=== PATIENT | male | born 1965 | race Caucasian/White ===

== ENCOUNTER → 2016-05-26 | Outpatient (CLI) | payer BC ==
[2016-05-26 07:31] LABS: Basophils # (A) 0.1 k/uL (0-0.2); Basophils % (A) 2 %; CH 31.4; Eosinophils # (A) 0.2 k/uL (0-0.7); Eosinophils % (A) 3 %; HCT 47.4 % (39.0-53.0); HDW 2.83; Luc # (Auto) 0.12; Luc % (Auto) 2; Lymphocytes # (A) 2.3 k/uL (1.0-4.8); Lymphocytes % (A) 34 %; MCH 30.5 pg (25.0-35.0); MCHC 33.8 g/dL (31.0-37.0); MCV 90.2 fL (80.0-100.0); Monocytes # (A) 0.5 k/uL (0-1.0); Monocytes % (A) 7 %; Neutrophils # (A) 3.6 k/uL (1.3-7.7); Neutrophils % (A) 53 %; RBC 5.26 m/uL (4.30-5.90); RDW 13.8 % (11.5-15.5); WBC 6.8 k/uL (3.8-10.6); WBC (Perox) 6.91
--- NOTE | 2016-05-26 09:32 | CT ---
EXAMINATION TYPE: CT ChestAbdPelvis w con DATE OF EXAM: 05/26/2016 7:47 AM COMPARISON: 02/23/2016 HISTORY: 51-year-old male with colon cancer TECHNIQUE: Contiguous axial scanning of the chest, abdomen, and pelvis performed with IV Contrast, pa tient injected with 100 ml mL of Omnipaque 300. Delayed images through the kidneys were obtained. Cor onal/sagittal reconstructions performed. CT DLP: 1018.00 mGycm Automated exposure control for dose reduction was used. FINDINGS: CHEST: Heart is normal size without pericardial effusion. Aorta is normal caliber with conventional arch vessel branching anatomy. Right anterior chest wall injection port with catheter tip at the mid SVC. No thoracic lymphadenopathy. Evaluation of the lungs shows no consolidation or pleural effusion. ABDOMEN: There is rectus diastases with laxity of the linea alba and a new right perimedian Chambers hernia jorge ng the epigastrium, axial image 73 and sagittal image 60. This involves a small bowel loop. No obstru ctive or inflammatory changes seen. No focal liver lesion seen. Status post right hepatectomy. No dilated small bowel, free fluid, or free air. Post surgical changes of right hemicolectomy. Oral contrast has progressed to the rectum. Stable 4 mm lower midline mesenteric lymph node axial image 99. Additional scattered mesenteric lymph nodes measure up to 7 mm and are stable from previous. Adrenal glands, kidneys, spleen, and pancreas within normal limits. Pelvis: There are moderate sized left greater than right fat-containing inguinal hernias with resolution of t he previously seen inflammation along the left inguinal canal. No abnormal fluid collection in the pe lvis or pelvic lymphadenopathy seen. Bones: Mild degenerative changes at the hips and throughout the lumbar spine with a levoconvex curvature. No osseous destructive process seen. IMPRESSION: 1. STATUS POST RIGHT HEMICOLECTOMY WITH ENTEROCOLONIC ANASTOMOSIS AND RIGHT HEPATECTOMY. 2. SCATTERED PROMINENT MESENTERIC LYMPH NODES MEASURING UP TO 7 MM ARE UNCHANGED. NO NEW SUSPICIOUS L YMPHADENOPATHY OR MASS. 3. RECTUS DIASTASES WITH A NEW SMALL BOWEL CONTAINING RIGHT PARAMEDIAN CHAMBERS HERNIA ALONG THE EPIGA STRIUM. 4. CONTINUED MODERATE LEFT GREATER THAN RIGHT FAT-CONTAINING INGUINAL HERNIAS. THE PREVIOUSLY SEEN IN FLAMMATION IN THE LEFT INGUINAL CANAL HAS RESOLVED IN THE INTERVAL.
[2016-05-26 12:20] LABS: ALT 36 U/L (21-72); AST 30 U/L (17-59); Alkaline Phosphatase 74 U/L (38-126); Anion Gap 10 mmol/L; Blood Urea Nitrogen 12 mg/dL (9-20); Calcium 9.6 mg/dL (8.4-10.2); Carbon Dioxide 27 mmol/L (22-30); Chloride 105 mmol/L (98-107); Glucose 92 mg/dL (74-99); Non-African American GFR(MDRD) >60 (>60 ml/min/1.73 sqM); Potassium 4.9 mmol/L (3.5-5.1); Sodium 142 mmol/L (137-145); Total Bilirubin 0.8 mg/dL (0.2-1.3); Total Protein 7.5 g/dL (6.3-8.2)
== END | disposition home or self-care (01) ==
LOC: RADCTMAIN 06:51
PROVIDERS: ATTEND Internal Medicine Hematology & Oncology
DX: K40.90 Unilateral inguinal hernia, without obstruction or gangrene, not specified as recurrent (principal); Z90.49 Acquired absence of other specified parts of digestive tract; C18.7 Malignant neoplasm of sigmoid colon
CPT/HCPCS: 80053; 82378; 85025; 71260; 74177; 36415; Q9967

== ENCOUNTER → 2016-11-28 | Outpatient (CLI) | payer BC ==
--- NOTE | 2016-11-28 09:23 | CT ---
EXAMINATION TYPE: CT ChestAbdPelvis w con DATE OF EXAM: 11/28/2016 COMPARISON: 05/26/2016 HISTORY: Colon cancer CT DLP: 1778.60 mGycm CONTRAST: CT scan of the chest, abdomen and pelvis is performed with Oral Contrast and with IV Contrast, patien t injected with 100 ml mL of Omnipaque 300. CT Chest: LUNGS: The lungs are clear and free of infiltrate or atelectasis. No pulmonary nodule or mass is det ected. No pleural effusion or CT evidence of interstitial lung disease. MEDIASTINUM: Thoracic aorta is of normal caliber. The heart is not enlarged. No evidence for media stinal mass or adenopathy. HILAR STRUCTURES: No evidence for mass. No hilar adenopathy is appreciated. OTHER: No significant abnormality. CONTRAST CT ABDOMEN AND PELVIS FINDINGS: LIVER/GB: Stable changes of right hepatectomy. Fatty hepatic infiltration noted. The gallbladder valladares rgically absent. No space occupying hepatic lesion. Biliary tree is of normal caliber. PANCREAS: No inflammation. No distinct mass. SPLEEN: No splenic enlargement. No lesion seen. ADRENALS: No nodule. No thickening. KIDNEYS/BLADDER: No hydronephrosis. No nephrolithiasis. No disctinct renal mass. BOWEL: [place] ventral hernia is again noted with Chambers component. No evidence for incarceration. Fat-containing inguinal hernias also identified. Changes of right hemicolectomy. Normal bowel calib er. No inflammation. GENITAL ORGANS: No gross abnormality. LYMPH NODES: No greater than 1cm abdominal or pelvic lymph nodes are appreciated. AORTA: No significant abnormality. OSSEOUS STRUCTURES: Degenerative changes noted of the lumbar spine. OTHER: No significant additional abnormality is seen. IMPRESSION: 1. Stable appearance of the chest abdomen and pelvis without evidence for metastatic disease. 2. Fatty liver. 3. Changes of partial right hepatectomy and right hemicolectomy. 4. Stable ventral widemouthed hernia.
== END | disposition home or self-care (01) ==
LOC: RADPROMAIN 07:51
PROVIDERS: ATTEND Internal Medicine Hematology & Oncology
DX: C18.7 Malignant neoplasm of sigmoid colon (principal); K76.0 Fatty (change of) liver, not elsewhere classified; K43.9 Ventral hernia without obstruction or gangrene
CPT/HCPCS: 71260; 74177; Q9967

== ENCOUNTER → 2017-12-10 | Outpatient (CLI) | payer BC ==
--- NOTE | 2017-12-10 09:54 | CT ---
EXAMINATION TYPE: CT ChestAbdPelvis w con DATE OF EXAM: 12/10/2017 COMPARISON: 06/18/2017, 11/28/17. HISTORY: Follow up colon CA. CT DLP: 1712 mGycm. Automated Exposure Control for Dose Reduction was Utilized. CONTRAST: CT scan of the thorax, abdomen and pelvis is performed with IV Contrast, patient injected with 100 mL of Isovue 300. FINDINGS: LUNGS: The lungs are grossly clear, there is no concerning parenchymal mass or nodule identified. T here is no pleural effusion or pneumothorax seen. The tracheobronchial tree is patent. MEDIASTINUM: Very minimal coronary artery calcifications are noted. Thoracic aorta is within normal l imits of size. There are no greater than 1 cm hilar or mediastinal lymph nodes. Right-sided Mediport terminates in the superior vena cava. No pericardial effusion is seen. Similar-appearing enlarged e piphrenic lymph node is seen in series 3 image 48. LIVER/GB: Partial right hepatectomy is present as well as diffuse hypoattenuation of the hepatic pare nchyma. This is favored to represent hepatic steatosis and this limits evaluation for underlying hepa tic masses no focal hepatic lesion is seen. PANCREAS: No significant abnormality is seen. No pancreatic ductal dilatation. SPLEEN: No significant abnormality is seen. ADRENALS: Slight thickening of the left adrenal gland is appreciated although similar to the prior wi th no focal measurable lesion. Right adrenal gland is unremarkable. KIDNEYS: Kidneys enhance and excrete symmetrically without hydronephrosis. BOWEL: Although there is no large or small bowel dilatation there is postsurgical change of a right h emicolectomy and similar-appearing ventral hernia with herniation of multiple small bowel loops. No c urrent CT evidence of incarceration as there is no proximal dilatation or distal decompression. No pn eumatosis intestinalis. No subcutaneous inflammatory stranding or mesenteric inflammatory stranding a round the hernia. Circumferential rectal wall thickening is likely due to incomplete distention. Anastomotic site is se en of the rectosigmoid junction. GENITAL ORGANS: No gross abnormality seen. LYMPH NODES: No greater than 1cm abdominal or pelvic lymph nodes are appreciated. OSSEOUS STRUCTURES: There is an old fracture deformity of the xiphoid process spine as well as of the sacroiliac joints and femoral acetabular joints, moderate at the left hip. No new suspicious osseous lesion is identified. OTHER: There are bilateral fat filled inguinal hernias abdominal aorta is of however. IMPRESSION: 1. No new evidence of visceral or osseous metastatic disease within the chest, abdomen, or pelvis. N o new adenopathy. 2. Redemonstration of hepatic steatosis and partial right hepatectomy with no new focal hepatic lesio n identified. 3. Circumferential thickening of the rectal milan likely due to incomplete distention. Again there ar e postsurgical changes of a right hemicolectomy with widening ventral abdominal hernia containing non dilated loops of small bowel.
== END | disposition home or self-care (01) ==
LOC: RADPROMAIN 07:00
PROVIDERS: ATTEND Internal Medicine Hematology & Oncology
DX: K76.0 Fatty (change of) liver, not elsewhere classified (principal); K43.9 Ventral hernia without obstruction or gangrene; K62.89 Other specified diseases of anus and rectum; C18.7 Malignant neoplasm of sigmoid colon; Z90.49 Acquired absence of other specified parts of digestive tract; Z90.89 Acquired absence of other organs
CPT/HCPCS: 71260; 74177; J1642; Q9967

== ENCOUNTER → 2018-02-13 | Day surgery (SDC) | payer BC ==
[2018-02-08 09:19] VITALS: BMI 30.5
[~2018-02-13] MED LIST: LACTATED RINGERS 1,000 ML IV ONE; LACTATED RINGERS 1,000 ML IV SCH; LIDOCAINE 1% 20 ML VIAL (10MG/ML) FOR IV START INTRADERMA ONE; LIDOCAINE 1% INJ 10MG/ML (20 ML MDV) ONE; PROPOFOL 10 MG/ML 20 ML VIAL IV ONE
[2018-02-13 10:44] VITALS: RESP 16; TEMP 97.1
--- NOTE | 2018-02-13 11:38 | P.GSHP ---
History of Present Illness H&P Date: 02/13/18 Chief Complaint: Colon cancer Patient with a history of advanced sigmoid colon cancer. Patient underwent previous colostomy and surgical resection. Here today for follow-up colonoscopy. Some loose stools but otherwise no bowel complaints. Past Medical History Past Medical History: Cancer, GERD/Reflux Additional Past Medical History / Comment(s): COLON , SMALL BOWEL CANCER & LIVER (02/2015). History of Any Multi-Drug Resistant Organisms: None Reported Past Surgical History: Bowel Resection Additional Past Surgical History / Comment(s): COLONOSCOPY 03/05/15 WITH BOWEL PERFORATION AND HAD RIGHT COLECTOMY WITH COLOSTOMY/REVERSAL Past Anesthesia/Blood Transfusion Reactions: No Reported Reaction Additional Past Anesthesia/Blood Transfusion Reaction / Comment(s): CLAUSTERPHOBIC Smoking Status: Former smoker - Past Family History Father Family Medical History: Coronary Artery Disease (CAD) Additional Family Medical History / Comment(s): DIVERTICULITIS. Mother Additional Family Medical History / Comment(s): DIVERTICULITIS Medications and Allergies Home Medications Medication Instructions Recorded Confirmed Type Cholestyramine (with Sugar) 4 gm PO AC-SUPPER 02/08/18 02/13/18 History [Cholestyramine Powder] Allergies Allergy/AdvReac Type Severity Reaction Status Date / Time levothyroxine sodium AdvReac Severe Irregular Verified 02/13/18 10:40 Heart beat, Nerve pain. Surgical - Exam Vital Signs Temp Pulse Resp BP Pulse Ox 97.1 F L 70 16 126/86 97 02/13/18 10:43 02/13/18 10:43 02/13/18 10:43 02/13/18 10:43 02/13/18 10:43 Physical exam: General: Well-developed, well-nourished HEENT: Normocephalic, sclerae nonicteric Abdomen: Nontender, nondistended Extremities: No edema Neuro: Alert and oriented Assessment and Plan (1) Colon adenocarcinoma Narrative/Plan: Will proceed with colonoscopy today. Current Visit: No Status: Acute Priority: High Code(s): C18.9 - MALIGNANT NEOPLASM OF COLON, UNSPECIFIED SNOMED Code(s): 049497859
--- NOTE | 2018-02-13 11:53 | P.PCN ---
Date of Procedure: 02/13/18 Procedure(s) Performed: PREOPERATIVE DIAGNOSIS: History of colon cancer, screening POSTOPERATIVE DIAGNOSIS: Normal exam post resection PROCEDURE: Colonoscopy ANESTHESIA: MAC SURGEON: Raúl Sanchez M.D. SPECIMENS: None ENDOSCOPIC PROCEDURE: The patient was placed on the endoscopy table in the left decubitus position. The Olympus colonoscope was inserted into the anus and passed under direct visualization to the ileocolonic anastomosis. The anastomosis was widely patent. The visualized transverse descending and rectum appeared normal. The colorectal anastomosis was likewise widely patent. No abnormalities at the anastomosis were seen. Digital rectal examination was normal. The patient was taken to the recovery room in stable condition per anesthesia guidelines. RECOMMENDATIONS: Increase fiber. Follow-up colonoscopy 3 years.
[2018-02-13 12:17] VITALS: BP 128/87; PULSE 64
== END ==
LOC: ORWHC2ENDO 10:17
PROVIDERS: ATTEND Surgery
DX: Z12.11 Encounter for screening for malignant neoplasm of colon (principal); K21.9 Gastro-esophageal reflux disease without esophagitis; Z85.038 Personal history of other malignant neoplasm of large intestine; Z85.068 Personal history of other malignant neoplasm of small intestine; Z98.0 Intestinal bypass and anastomosis status; Z85.05 Personal history of malignant neoplasm of liver; Z92.21 Personal history of antineoplastic chemotherapy; Z90.49 Acquired absence of other specified parts of digestive tract; Z87.891 Personal history of nicotine dependence; Z79.899 Other long term (current) drug therapy; Z88.8 Allergy status to other drugs, medicaments and biological substances
CPT/HCPCS: J2001; J2704; G0105; 45378

== ENCOUNTER → 2018-05-21 | Outpatient (CLI) | payer BC ==
--- NOTE | 2018-05-21 16:38 | CT ---
EXAMINATION TYPE: CT ChestAbdPelvis w con DATE OF EXAM: 05/21/2018 INDICATION: Colon cancer. COMPARISON: 12/10/2017 CT DLP: 1955 mGycm CONTRAST: Performed with Oral Contrast and with IV Contrast, patient injected with 100ml mL of Isovue M300. TECHNIQUE: Axial images at 5 mm thick sections. Reconstructed images in the coronal plane. Delayed images through the kidneys. FINDINGS: CT CHEST: Portion of the thyroid visualized is normal. No suspicious lung nodules or focal infiltrates are present. No enlarged mediastinal or hilar adenopathy is evident. The ascending aorta diameter at the level of the main pulmonary artery is 3.1 cm. The main pulmonary artery diameter at the bifurcation is 2.3 cm. Mild coronary artery calcifications present. CT ABDOMEN: There is epigastric hernia containing loop of bowel as well as a portion of the liver. No obstruction is evident. This appears to be wide ventral opening of 10 cm. Liver: No discrete masses. Some mild fatty infiltration may be present. Partial resection of the righ t lobe is present. Spleen: Normal Pancreas: Normal Adrenal glands: The adrenal glands are normal. Gallbladder: Not visualized. Kidneys: No masses are evident. No hydronephrosis is present. No cysts are present. Delayed images were obtained through the kidneys, which remain unremarkable. Aorta: Normal Inferior vena cava: Normal. CT PELVIS: Loops of bowel within the abdomen and pelvis are normal. There are loops of bowel which are incom pletely distended or lack oral contrast limiting their evaluation. There has been a prior right hemic olectomy to the mid transverse colon. Appendix: Not identified Urinary bladder: Normal. Genitourinary structures: Prostate is unremarkable. Osseous structures: No suspicious lytic or sclerotic lesions. Degenerative disc changes are within th e lumbar spine. IMPRESSIONS: 1. No suspicious changes to suggest metastatic disease. 2. Postsurgical changes discussed above. 3. Epigastric abdominal wall hernia containing nonobstructed loops of bowel and a portion of the live r.
== END ==
LOC: RADPROMAIN 12:36
PROVIDERS: ATTEND Internal Medicine Hematology & Oncology
DX: C18.7 Malignant neoplasm of sigmoid colon (principal); K43.9 Ventral hernia without obstruction or gangrene; Z98.890 Other specified postprocedural states
CPT/HCPCS: 71260; 74177; J1642; Q9967

== ENCOUNTER → 2018-11-19 | Outpatient (CLI) | payer BC ==
--- NOTE | 2018-11-19 10:35 | CT ---
EXAMINATION TYPE: CT ChestAbdPelvis w con DATE OF EXAM: 11/19/2018 COMPARISON: 05/21/2018 and 12/10/2017 HISTORY: 53-year-old male follow up to colon CA, observe for mets TECHNIQUE: Contiguous axial scanning of the test, abdomen, and pelvis performed with IV Contrast, pat ient injected with 100 mL of Isovue 300. Delayed images through the kidneys were obtained. Coronal/sa gittal reconstructions performed. CT DLP: 1977 mGycm Automated exposure control for dose reduction was used. FINDINGS: CHEST: Heart normal size without pericardial effusion. Aorta normal caliber with conventional arch vessel branching anatomy. Right anterior chest wall injection port with catheter tip at the low right brachiocephalic vein. No thoracic lymphadenopathy by CT size criteria. No consolidation or pleural effusion. ABDOMEN: Redemonstrated substernal rectus diastases entering up to 9.6 cm wide containing nonobstructed small bowel loops. Just below in the supraumbilical midline is a second ventral abdominal wall hernia measuring 10.3 cm wide with the neck of the hernia measuring 5.9 cm wide, stable to slightly smaller and also containin g nonobstructed small bowel loops. Prior right hepatectomy redemonstrated. There is new intrahepatic biliary ductal dilatation within posterior aspect of segment 2 left liver l obe with some mild patchy hypodensity located more centrally measuring up to 2.3 cm. No other focal l iver lesion is seen. Portal venous system is patent. Bile duct normal caliber. Enlarging gastrohepatic ligament lymph node measuring 1.3 cm versus 6 mm, previously. No other mesent patric or retroperitoneal lymphadenopathy seen. No dilated small bowel, free fluid, or free air. Prior right hemicolectomy with ileocolonic anastomosis at the level of the midtransverse colon. Pelvis: Circumferential bladder wall thickening. Prostate gland measures 3.9 cm wide. Fat containing left gre ater than right indirect inguinal hernias. No abnormal fluid collection in the pelvis or pelvic lymph adenopathy. Bones: Mild degenerative change of the hips. Degenerative change lower lumbar spine. Endplate spondylosis lo wer thoracic spine. No osseous destructive process seen. IMPRESSION: 1. PRIOR RIGHT HEPATECTOMY AND RIGHT HEMICOLECTOMY. 2. NEW INTRAHEPATIC BILIARY DUCTAL DILATATION WITHIN THE POSTERIOR ASPECT OF SEGMENT 2 LEFT LIVER LOB E. MORE CENTRALLY WITHIN SEGMENT 2, THERE IS A 2.3 CM FOCAL AREA OF HYPODENSITY. FINDINGS VERY SUSPIC IOUS FOR A NEW HYPOVASCULAR COLON CANCER METASTASIS TO THIS LOCATION. FURTHER EVALUATION RECOMMENDED. 3. ENLARGING GASTRIC HEPATIC LIGAMENT LYMPH NODE MEASURING 1.3 CM VERSUS 6 MM, PREVIOUSLY.
== END | disposition home or self-care (01) ==
LOC: RADPROMAIN 06:55
PROVIDERS: ATTEND Internal Medicine Hematology & Oncology
DX: Z03.89 Encounter for observation for other suspected diseases and conditions ruled out (principal); C78.7 Secondary malignant neoplasm of liver and intrahepatic bile duct; C18.7 Malignant neoplasm of sigmoid colon; K82.8 Other specified diseases of gallbladder; R59.0 Localized enlarged lymph nodes; Z90.49 Acquired absence of other specified parts of digestive tract; Z95.828 Presence of other vascular implants and grafts
CPT/HCPCS: 71260; 74177; J1642; Q9967

== ENCOUNTER → 2018-12-04 | Outpatient (CLI) | payer BC ==
--- NOTE | 2018-12-05 09:31 | MR ---
EXAMINATION TYPE: MR abdomen wo/w con DATE OF EXAM: 12/04/2018 COMPARISON: CT chest, abdomen, and pelvis dated 11/19/2018 and 05/21/2018 HISTORY: Colon cancer / Liver Lesions CONTRAST: Standard multiplanar, multisequence MRI departmental protocol utilizing 10 mL intravenous Gadavist ga dolinium contrast. FINDINGS: There is a very mild levoscoliotic curvature of the lumbar spine on the localizer images. The liver demonstrates mild signal dropout on out of phase imaging compatible with mild degree hepati c steatosis. This does somewhat limit evaluation of hepatic masses. However, there is a lobulated mas s centrally within segment 2 of the liver with irregular enhancement compatible with metastasis. This is predominantly T2 iso to hypointense with surrounding slight T2 hyperintensity laterally within th e left hepatic lobe representing altered hepatic perfusion as there is abnormal enhancement and intra hepatic biliary ductal dilatation secondary to obstruction in the peripheral left hepatic lobe downst ream from the primary mass. This mass is most well-defined on delayed imaging and measures 2.0 x 3.4 cm. Again there is partial right hepatectomy no susceptibility artifact along the right. No other praveena picious hepatic masses are seen. Transient hepatic altered perfusion is noted in the subcapsular ante rior left hepatic lobe inferiorly along segment 4A. As discussed on the prior CT multifocal small bowel and mesenteric fat filled ventral hernias are red emonstrated. There is no evidence of dilated large or small bowel. The spleen, pancreas, adrenal glan ds, and kidneys are unremarkable. There are slightly enlarged gastrohepatic ligament lymph nodes nette uring up to lymph 1.1 cm in short axis. Minimal degenerative changes of the spine are seen. Postsurgi marisol change of a right hemicolectomy, partially visualized. IMPRESSION: 1. Confirmation of hepatic metastasis with a solitary left hepatic lobe lesion measuring 2.0 x 3.4 cm resulting in downstream intrahepatic biliary ductal dilatation and altered hepatic perfusion within the central medial left hepatic lobe. This was present on the exam of 11/29/2018 as discussed but not definitively seen on exams prior to this, possibly due to the underlying hepatic steatosis, which oreilly s limit evaluation for hepatic masses. 2. Mildly enlarged gastrohepatic ligament lymph nodes measuring up to 1.1 cm in short axis.
== END | disposition home or self-care (01) ==
LOC: RADMRIMAIN 14:27
PROVIDERS: ATTEND Internal Medicine Hematology & Oncology
DX: C18.7 Malignant neoplasm of sigmoid colon (principal); C78.7 Secondary malignant neoplasm of liver and intrahepatic bile duct; K83.8 Other specified diseases of biliary tract; R59.0 Localized enlarged lymph nodes
CPT/HCPCS: 74183; A9585

== ENCOUNTER → 2019-02-24 | Outpatient (CLI) | payer BC ==
--- NOTE | 2019-02-24 09:42 | XR ---
EXAMINATION TYPE: XR femur LT DATE OF EXAM: 02/24/2019 COMPARISON: NONE HISTORY: C 18.7, R19.7, Z71.3, Z71.89 TECHNIQUE: 2 view left femur FINDINGS: There is loss of joint space at the left hip. No acute fractures are evident. Mild degenera tive changes are at the knee. IMPRESSION: 1. Osteoarthritic degenerative changes left hip. 2. No acute osseous abnormality left femur.
--- NOTE | 2019-02-24 10:11 | XR ---
EXAMINATION TYPE: XR Hip LT and AP Pelvis DATE OF EXAM: 02/24/2019 COMPARISON: None HISTORY: C18.7 R19.7 Z71.3 Z71.89 TECHNIQUE: AP pelvis with 2 views left hip FINDINGS: There is loss of the joint space between the femoral head and the acetabulum superiorly. Sm all acetabular spurs present. No acute fractures are evident. IMPRESSION: 1. Moderate osteoarthritic degenerative changes left hip. 2. No acute osseous abnormality.
== END | disposition home or self-care (01) ==
LOC: RADXRMAIN 09:15
PROVIDERS: ATTEND Nurse Practitioner Adult Health
DX: M16.12 Unilateral primary osteoarthritis, left hip (principal); R19.7 Diarrhea, unspecified; Z71.3 Dietary counseling and surveillance; Z71.89 Other specified counseling
CPT/HCPCS: 73502

== ENCOUNTER → 2019-03-19 | Outpatient (CLI) | payer OTHER ==
[2019-03-19 10:34] LABS: African American GFR (CKD) >90 (>60 ml/min/1.73 sqM); Blood Urea Nitrogen 8 mg/dL (9-20)
--- NOTE | 2019-03-19 13:12 | CT ---
EXAMINATION TYPE: CT ChestAbdPelvis w con DATE OF EXAM: 03/19/2019 COMPARISON: 11/19/2018 HISTORY: Colon cancer. CT DLP: 1950 mGycm CONTRAST: CT scan of the chest, abdomen and pelvis is performed with Oral Contrast and with IV Contrast, patien t injected with 100 mL of Isovue M300. CT Chest: LUNGS: The lungs are clear and free of infiltrate or atelectasis. No pulmonary nodule or mass is det ected. No pleural effusion or CT evidence of interstitial lung disease. MEDIASTINUM: Thoracic aorta is of normal caliber. The heart is not enlarged. No evidence for media stinal mass or adenopathy. HILAR STRUCTURES: No evidence for mass. No hilar adenopathy is appreciated. OTHER: Right-sided MediPort catheter redemonstrated. CONTRAST CT ABDOMEN AND PELVIS FINDINGS: LIVER/GB: Right hepatectomy changes again noted. There is a hypoattenuating lesion within the lateral segment left hepatic lobe which has enlarged in size and currently measures 3.2 x 2.1 cm versus 2.3 x 2.3 cm. No additional hepatic lesions identified at this time. Mild hepatic steatosis noted. Mild b iliary ductal prominence left hepatic lobe. PANCREAS: No inflammation. No distinct mass. SPLEEN: No splenic enlargement. No lesion seen. ADRENALS: Stable nodularity left adrenal gland. KIDNEYS/BLADDER: No hydronephrosis. No nephrolithiasis. No disctinct renal mass. BOWEL: Stable 10 cm substernal rectus diastases containing predominantly small bowel. No evidence for strangulation. Overall similar appearance relative to the prior study. Right hemicolectomy changes a re stable. An anastomosis appears patent. Partial sigmoid colectomy noted as well. No evidence for re current or residual mass. GENITAL ORGANS: No gross abnormality. LYMPH NODES: Slight diminution in size gastrohepatic ligament lymph node measuring 1 cm in short axis versus 1.3 cm previously. No Additional adenopathy appreciated. AORTA: No significant abnormality. OSSEOUS STRUCTURES: No significant abnormality is seen. OTHER: Fat-containing inguinal hernias noted bilaterally. IMPRESSION: 1. Left hepatic lesion persists and is larger in size. 2. Redemonstration of right-sided hepatectomy and right-sided hemicolectomy change. 3.Slight diminution in size gastrohepatic ligament lymph node measuring 1 cm in short axis versus 1.3 cm previously.
== END | disposition home or self-care (01) ==
LOC: RADPROMAIN 09:57
PROVIDERS: ATTEND Internal Medicine Hematology & Oncology
DX: K76.89 Other specified diseases of liver (principal); C18.7 Malignant neoplasm of sigmoid colon; Z79.890 Hormone replacement therapy; Z90.49 Acquired absence of other specified parts of digestive tract
CPT/HCPCS: 82565; 84520; 71260; 74177; 36415; Q9967 ×2

== ENCOUNTER → 2019-06-04 | Outpatient (CLI) | payer OTHER ==
[2019-06-04 11:16] LABS: African American GFR (CKD) >90 (>60 ml/min/1.73 sqM); Blood Urea Nitrogen 8 mg/dL (9-20); Non-African American GFR(CKD) >90 (>60 ml/min/1.73 sqM)
--- NOTE | 2019-06-04 13:06 | CT ---
EXAMINATION TYPE: CT ChestAbdPelvis w con DATE OF EXAM: 06/04/2019 COMPARISON: CT chest abdomen and pelvis March 19, 2019. Older CTs HISTORY: follow up colon CA CT DLP: 1569 mGycm. Automated Exposure Control for Dose Reduction was Utilized. CONTRAST: CT scan of the thorax, abdomen and pelvis is performed with oral and with IV Contrast, patient inject ed with 100 mL of Isovue 300. FINDINGS: LUNGS: The lungs are grossly clear, there is no concerning parenchymal mass or nodule identified. T here is no pleural effusion or pneumothorax seen. The tracheobronchial tree is patent. MEDIASTINUM: There are no no new greater than 1 cm hilar or mediastinal lymph nodes. No cardiomegal y or pericardial effusion is seen. Coronary artery calcification is redemonstrated which is noted ma rked underlying coronary artery disease. OTHER: Stable right internal jugular Mediport catheter. LIVER/GB: Surgical changes from right-sided hepatectomy redemonstrated. Heterogeneous hypodense mass posterior left hepatic lobe measures approximately 3.6 cm long axis for study image 47 not significan tly changed in size or appearance from most recent study. No new heterogeneous hypodense mass is iden tified. Caudate lobe hypertrophy redemonstrated. Underlying fatty infiltration of liver redemonstrate d. Gallbladder not visualized and is presumed surgically absent. PANCREAS: No significant abnormality is seen. SPLEEN: Splenomegaly redemonstrated measuring 14.9 cm long axis coronal image 79 significantly change d from prior. ADRENALS: No significant abnormality is seen. KIDNEYS: No significant abnormality is seen. BOWEL: Oral contrast reaches level of the distal left colon on current study. There are diverticula i n the sigmoid colon. Sutures from primary anastomosis sigmoid colon level cul-de-sac image 105 redemo nstrated. Hnsp-bi-lnmcelds wall thickening below sutures seen on current study with slightly more ecc entric moderate to severe appearance into rectum image 116 noted. Distal portion has similar appearan ce to prior study. Surgical changes from right-sided hemicolectomy with small bowel anastomosis coron al image 50 in the left mid abdomen. Slightly more prominent contrast filled small bowel right and ce ntral abdomen on current study. Persistent bowing of the rectus sheath containing contrast-filled sma ll bowel loops without definitive rectus defect or hernia. GENITAL ORGANS: Heterogeneous mildly enlarged prostate gland consistent with BPH. LYMPH NODES: Fairly stable gastrohepatic lymph nodes are most current study measured 1.5 x 1.2 cm axi al image 53. There is however new suspicious anterior lower aortic mass or lymph node measuring 1.3 x 1.0 cm image 79 with ill-defined fluid and fat stranding. OSSEOUS STRUCTURES: Fairly moderate multilevel spurring in the spine. Some areas of moderate disc spa ce narrowing and spurring noted at L1-L2 and L5-S1 levels for reference. Asymmetric moderate degenera tive change left hip versus right hip. OTHER: Moderate to large left greater than right fat-containing inguinal hernias are redemonstrated b ilaterally. IMPRESSION: 1. Stable hepatic metastatic disease . Postsurgical changes to the liver and bowel redemonstrated. T here is however new suspicious retroperitoneal lymph node anterior to the aorta in the mid abdomen wi th surrounding fluid could reflect inflammatory change. Also suspicious wall thickening distal to the suture in the sigmoid rectal colon particularly at level of rectum in which recurrent primary neopla sm needs to be considered. Colonoscopy follow-up is advised.
== END | disposition home or self-care (01) ==
LOC: RADPROMAIN 10:22
PROVIDERS: ATTEND Internal Medicine Hematology & Oncology
DX: C18.7 Malignant neoplasm of sigmoid colon (principal); C78.7 Secondary malignant neoplasm of liver and intrahepatic bile duct; Z90.49 Acquired absence of other specified parts of digestive tract; Z88.8 Allergy status to other drugs, medicaments and biological substances
CPT/HCPCS: 82565; 84520; 71260; 74177; Q9967

== ENCOUNTER → 2019-08-02 | Outpatient (CLI) | payer OTHER ==
--- NOTE | 2019-08-05 06:42 | PE ---
EXAMINATION TYPE: PET CT fusion skull to thigh DATE OF EXAM: 08/02/2019 COMPARISON: CT chest abdomen and pelvis June 04, 2019 and older CTs. Prior outside PET/CT report N ovember 2014. HISTORY: Colorectal cancer originally diagnosed 2016 with liver metastatic disease diagnosed March 05, 2019. TECHNIQUE: Following the intravenous administration of 12.23 mCi of F-18 FDG, whole body images are performed from the skull base to the midthigh. Images are reviewed on the computer in the coronal, a xial, and sagittal planes. Reconstructed rotating images are created on independent workstation and reviewed on the computer. A noncontrast CT is performed in conjunction with the PET scan. SCAN: Initial Scan FINDINGS: SKULL BASE AND NECK: There is small asymmetric roughly 1 cm focus right tonsillar fossa at level of the tongue base axial image 30, max SUV is 4.74. Consider direct visualization to further evaluate. CHEST, MEDIASTINUM, AND HILAR REGION: No areas of suspicious hypermetabolic uptake. ABDOMEN AND PELVIS: Postsurgical changes from right-sided partial hepatectomy redemonstrated. No susp icious hypermetabolic uptake corresponding to the deep left high hepatic dome lesion on recent CT. Some residual fluid and fat stranding anterior to the distal abdominal aorta right before bifurcation does not show abnormal hypermetabolic uptake. Fairly diffuse uptake in the bowel from the splenic flexure through the rectum including an area of s uspicion just distal to the sutures axial image 215. This makes evaluation for recurrent neoplasm at this level essentially impossible. Consider colonoscopy correlation. OSSEOUS STRUCTURES: No suspicious hypermetabolic uptake. OTHER CT: Persistent slightly coiled right internal jugular Mediport catheter terminating just before the SVC confluence. Gallbladder noted surgically absent. Splenomegaly redemonstrated. Surgical sutures left mid small bow el loops axial image 173 are present. Additional sutures central anterior inferior to this axial imag e 204 noted. Persistent moderate to large sized fat-containing left inguinal hernia. IMPRESSION: Suspicious hypermetabolic lesion right tongue base, advise direct visualization. No abnor mal hypermetabolic uptake in the hepatic mass to suggest residual active hypermetabolic hepatic metas tatic disease. No suspicious hypermetabolic uptake in the distal abdominal aortic region. No active m etastatic disease otherwise identified.
== END | disposition home or self-care (01) ==
LOC: RADPETMAIN 11:47
PROVIDERS: ATTEND Internal Medicine Hematology & Oncology
DX: C18.7 Malignant neoplasm of sigmoid colon (principal)
CPT/HCPCS: 78815; A9552

== ENCOUNTER → 2019-10-31 | Outpatient (CLI) | payer OTHER ==
--- NOTE | 2019-11-04 15:36 | PE ---
EXAMINATION TYPE: PET CT fusion skull to thigh DATE OF EXAM: 10/31/2019 COMPARISON: PET CT August 02, 2019 and older studies. HISTORY: Colorectal cancer progress study. Originally diagnosed February 2015 completed chemotherapy uncertain date. TECHNIQUE: Following the intravenous administration of 10.31 mCi of F-18 FDG, whole body images are performed from the skull base to the midthigh. Images are reviewed on the computer in the coronal, a xial, and sagittal planes. Reconstructed rotating images are created on independent workstation and reviewed on the computer. A noncontrast CT is performed in conjunction with the PET scan. SCAN: Subsequent Scan FINDINGS: SKULL BASE AND NECK: No new areas of suspicious radiotracer uptake. CHEST, MEDIASTINUM, AND HILAR REGION: No new areas of suspicious radiotracer uptake. ABDOMEN AND PELVIS: Surgical changes from right-sided partial hepatectomy redemonstrated. There is no w suspicious hyperechoic area deep left hepatic lobe near pack image 133 likely corresponding to vagu e hypodense 1.[address] Persistent increased bowel uptake distal sigmoid colon and rectum. Normal excretion with high positio marlyn right kidney redemonstrated. Surgical changes throughout bowel loops in the left mid and central lower abdomen with air-fluid levels and sigmoid rectal colon of the pelvis are all redemonstrated. OSSEOUS STRUCTURES: No new areas of suspicious hypermetabolic uptake. OTHER CT: Persistent coiled right internal jugular Mediport catheter terminating short of the SVC con fluence. Gallbladder noted surgically absent. Splenomegaly redemonstrated. Persistent moderate to large sized fat-containing left inguinal hernia. Persistent rectus diastases above the umbilicus with bowel loops extending to the skin surface axial image 171. S-shaped scoliosis with multilevel spurring in the spine. IMPRESSION: New suspicious roughly 1.0 cm hypermetabolic focus deep left hepatic lobe worrisome for n ew metastatic disease. Case discussed with oncologist via telephone at time of dictation.
== END | disposition home or self-care (01) ==
LOC: RADPETMAIN 10:05
PROVIDERS: ATTEND Internal Medicine Hematology & Oncology
DX: C18.7 Malignant neoplasm of sigmoid colon (principal)
CPT/HCPCS: 78815; A9552

== ENCOUNTER → 2019-11-21 | Outpatient (CLI) | payer OTHER ==
--- NOTE | 2019-11-21 17:56 | MR ---
Liver MRI with and without contrast HISTORY: Liver mass, history: Carcinoma Multiplanar multisequence and postcontrast images obtained through the liver functions 7.5 cc Gadavis t IV. The lung bases are clear. Aorta shows normal caliber. There is no ascites. The spleen is enlarged. Ad renal glands are not enlarged. Pancreas is within normal limits. Postop changes are noted to the live r, normal anatomy is distorted. Kidneys are unremarkable. Within the central portion of the liver there is a focus of mixed increased signal on T2-weighted seq uences measuring approximately 1.5 cm. T1-weighted sequences show low signal in relation to the remai nder of the liver, there is some suggestion of peripheral enhancement on immediate postcontrast image s and washout with some possible internal septations also showing what is likely enhancement. At this level of the liver towards left of midline there is some low signal noted on initial postcontrast im ages and precontrast which shows more homogenous enhancement on delayed imaging, there is questionabl e mass effect on the left hepatic vein, focal area of low signal immediately adjacent to the mass in a cephalad direction is noted and may be related to surgery. IMPRESSION: Mass within the liver corresponding to the hypermetabolic focus on PET/CT suspicious for metastatic focus. Splenomegaly.
== END | disposition home or self-care (01) ==
LOC: RADMRIMAIN 07:02
PROVIDERS: ATTEND Internal Medicine Hematology & Oncology
DX: K76.89 Other specified diseases of liver (principal); R16.2 Hepatomegaly with splenomegaly, not elsewhere classified; C18.7 Malignant neoplasm of sigmoid colon
CPT/HCPCS: 74183; A9585

== ENCOUNTER → 2020-02-06 | Outpatient (CLI) | payer OTHER ==
--- NOTE | 2020-02-09 06:47 | PE ---
EXAMINATION TYPE: PET CT fusion skull to thigh DATE OF EXAM: 02/06/2020 COMPARISON: Prior PET/CT October 31, 2019 and older studies. HISTORY: Colon cancer progress study. Originally diagnosed 2014. Completed chemotherapy October 01, 2019. Completed radiation treatment in December. TECHNIQUE: Following the intravenous administration of 10.02 mCi of F-18 FDG, whole body images are performed from the skull base to the midthigh. Images are reviewed on the computer in the coronal, a xial, and sagittal planes. Reconstructed rotating images are created on independent workstation and reviewed on the computer. A noncontrast CT is performed in conjunction with the PET scan. SCAN: Subsequent Scan FINDINGS: SKULL BASE AND NECK: No new areas of suspicious hypermetabolic uptake CHEST, MEDIASTINUM, AND HILAR REGION: No new areas of suspicious hypermetabolic uptake. ABDOMEN AND PELVIS: Surgical changes from right-sided partial hepatectomy redemonstrated. There is no w mild hypermetabolic uptake centrally in the liver more prominent in an area surrounding the area of more focal uptake or suspected metastatic lesion on prior study. Max SUV is 4.81. No definitive CT c orrelate. Suspect successful posttreatment response. Persistent increased hypermetabolic uptake near sutures in bowel loop axial image 175 left mid abdome n slightly less prominent from prior study. Max SUV 4.6 on current study. Persistent nonspecific bowel uptake sigmoid rectal colon near sutures axial image 218. SUV 4.94. This extends above the level of sutures and inferiorly up to level of the rectum. Hypermeta bolic uptake distal rectum and anus redemonstrated near image 243. Max SUV 7.25 OSSEOUS STRUCTURES: No new areas of suspicious hypermetabolic uptake. OTHER CT: Persistent coiled right internal jugular Mediport catheter terminating short of the SVC sandra gin. Gallbladder noted surgically absent. Splenomegaly redemonstrated. Persistent moderate to large sized fat-containing left inguinal hernia. Persistent rectus diastases above the umbilicus with bowel loops extending to the skin surface axial image 171. Slight scoliotic curvature with multilevel spurring in the spine. IMPRESSION: More diffuse uptake surrounding site of prior metastatic lesion without focal uptake in l iver suggesting positive treatment response. Nonspecific bowel uptake redemonstrated there are suture s. No new metastatic disease noted.
== END | disposition home or self-care (01) ==
LOC: RADPETMAIN 08:50
PROVIDERS: ATTEND Internal Medicine Hematology & Oncology
DX: C18.7 Malignant neoplasm of sigmoid colon (principal); Z92.21 Personal history of antineoplastic chemotherapy
CPT/HCPCS: 78815; A9552

== ENCOUNTER → 2020-03-30 | Outpatient (CLI) | payer OTHER ==
[2020-03-30 08:25] LABS: African American GFR (CKD) >90 (>60 ml/min/1.73 sqM); Blood Urea Nitrogen 12 mg/dL (9-20); Non-African American GFR(CKD) >90 (>60 ml/min/1.73 sqM)
--- NOTE | 2020-03-30 13:19 | CT ---
EXAMINATION TYPE: CT ChestAbdPelvis w con DATE OF EXAM: 03/30/2020 COMPARISON: Nuclear medicine PET/CT 02/06/2020, liver MRI 11/21/2019, CT 06/04/2019, CT 03/19/2019 HISTORY: Colon CA CT DLP: 954.4 mGycm Automated exposure control for dose reduction was used. CONTRAST: CT scan of the chest, abdomen and pelvis is performed with Oral Contrast and with IV Contrast, patien t injected with 100 mL of Isovue 300. FINDINGS: LUNGS: The lungs are grossly clear, there is no concerning parenchymal mass or nodule identified. T here is no pleural effusion or pneumothorax seen. The tracheobronchial tree is patent. MEDIASTINUM: There are no greater than 1 cm hilar or mediastinal lymph nodes. No pericardial effusi on is seen. AORTA: No significant abnormality is seen. OTHER: No additional significant abnormality is seen. LIVER/GB: Postop changes are again seen to the right lobe of the liver, no evident change in the appe arance. Posterior left lobe shows heterogeneous area with mixed enhancement and low attenuation thoug ht likely to be similar in size but slightly different appearance possibly due to technique, phase of enhancement or treatment change. Note at the level of the lesser curvature stomach shows a similar a ppearance. Gallbladder not seen. PANCREAS: No significant abnormality is seen. SPLEEN: Enlarged. ADRENALS: No significant abnormality is seen. KIDNEYS: No significant abnormality is seen. REPRODUCTIVE ORGANS: No gross abnormality seen. BOWEL: At the level of the suture line in the mid abdomen, infra umbilical location there is some foc al thickening of the small bowel not seen on prior exam CT but noted on prior PET/CT but no definite abnormal uptake area There are postop changes status post right hemicolectomy. Small bowel loops are present along the anterior abdominal wall hernia deep to the subcutaneous fat, there is no evident matthew wel obstruction. Anterior abdominal wall hernia shows a [place]. Rectum thickened is indeterminate. It shows a similar appearance to prior exam. FREE AIR: No Free Air visible. ASCITES: None seen. RETROPERITONEAL ADENOPATHY: No retroperitoneal adenopathy is seen. LYMPH NODES: No greater than 1 cm abdominal or pelvic lymph nodes are appreciated. URINARY BLADDER: No significant abnormality is seen. PELVIC ADENOPATHY: None visualized. OSSEOUS STRUCTURES: No significant interval change is seen. IMPRESSION: Findings are thought to be stable compared to most recent exam. Postop changes, posttreat ment changes. Splenomegaly. Additional findings above.
== END | disposition home or self-care (01) ==
LOC: RADCTMAIN 07:49
PROVIDERS: ATTEND Internal Medicine Hematology & Oncology
DX: C18.7 Malignant neoplasm of sigmoid colon (principal); K43.9 Ventral hernia without obstruction or gangrene; R16.1 Splenomegaly, not elsewhere classified; R93.2 Abnormal findings on diagnostic imaging of liver and biliary tract; R93.3 Abnormal findings on diagnostic imaging of other parts of digestive tract; Z88.8 Allergy status to other drugs, medicaments and biological substances; Z90.49 Acquired absence of other specified parts of digestive tract
CPT/HCPCS: 82565; 84520; 71260; 74177; 36415; Q9967 ×2

== ENCOUNTER → 2020-06-22 | Outpatient (CLI) | payer OTHER ==
[2020-06-22 10:19] LABS: African American GFR (CKD) >90 (>60 ml/min/1.73 sqM); Blood Urea Nitrogen 12 mg/dL (9-20); Non-African American GFR(CKD) >90 (>60 ml/min/1.73 sqM)
--- NOTE | 2020-06-22 13:14 | CT ---
EXAMINATION TYPE: CT ChestAbdPelvis w con DATE OF EXAM: 06/22/2020 COMPARISON: CT 03/30/2020, PET/CT 02/06/2020, liver MRI 11/21/2019 HISTORY: Colon cancer CT DLP: 1886 mGycm Automated exposure control for dose reduction was used. CONTRAST: CT scan of the chest, abdomen and pelvis is performed with Oral Contrast and with IV Contrast, patien t injected with 100 ml mL of Isovue 300. FINDINGS: LUNGS: Interval growth of the better appreciated, left upper lobe lung nodule measuring approximately 2.4 cm, increased in size compared to previous exams but it measured approximately 6 to 7 mm on PET/ CT, [address] There is no pleural effusion or pneumothorax seen. The tracheobronchial ashwini e is patent. MEDIASTINUM: There are no greater than 1 cm hilar or mediastinal lymph nodes. No pericardial effusi on is seen. AORTA: No significant abnormality is seen. OTHER: Anterior abdominal wall hernia contains bowel loops as on prior. LIVER/GB: Liver mass has increased in size measuring approximately 6.8 cm in transverse dimension as compared to 6.[address] Postop change noted to the right lobe of the liver. PANCREAS: No significant abnormality is seen. SPLEEN: No significant abnormality is seen. ADRENALS: No significant abnormality is seen. KIDNEYS: No significant abnormality is seen. REPRODUCTIVE ORGANS: No gross abnormality seen. BOWEL: Postop changes are noted to the sigmoid colon. Previous identified soft tissue thickening at the level of the suture line is thought to be improved. FREE AIR: No Free Air visible. ASCITES: None seen. RETROPERITONEAL ADENOPATHY: Previously identified soft tissue lesion at the level of the stomach les ser curvature of the stomach has increased in size and now measures 2.6 x 2 cm where as on previous e xam it measured 2.0 x 1.5 cm. LYMPH NODES: No greater than 1 cm abdominal or pelvic lymph nodes are appreciated. URINARY BLADDER: No significant abnormality is seen. PELVIC ADENOPATHY: None visualized. OSSEOUS STRUCTURES: No significant abnormality is seen. IMPRESSION: Interval progression of patient's metastatic disease
== END | disposition home or self-care (01) ==
LOC: RADCTMAIN 09:12
PROVIDERS: ATTEND Internal Medicine Hematology & Oncology
DX: Z03.89 Encounter for observation for other suspected diseases and conditions ruled out (principal); C18.7 Malignant neoplasm of sigmoid colon; Z88.8 Allergy status to other drugs, medicaments and biological substances
CPT/HCPCS: 82565; 84520; 71260; 74177; 36415; Q9967

== ENCOUNTER → 2020-09-06 | Outpatient (CLI) | payer OTHER ==
[2020-09-06 11:56] LABS: African American GFR (CKD) >90 (>60 ml/min/1.73 sqM); Blood Urea Nitrogen 13 mg/dL (9-20); Non-African American GFR(CKD) >90 (>60 ml/min/1.73 sqM)
--- NOTE | 2020-09-06 13:47 | CT ---
EXAMINATION TYPE: CT ChestAbdPelvis w con DATE OF EXAM: 09/06/2020 COMPARISON: Prior whole body CT June 22, 2020 and older studies. HISTORY: colon ca CT DLP: 1206.80 mGycm. Automated Exposure Control for Dose Reduction was Utilized. CONTRAST: CT scan of the thorax, abdomen and pelvis is performed with oral and with IV Contrast, patient inject ed with 100ml mL of Isovue 300. FINDINGS: LUNGS: There is stable or slightly larger 2.3 x 1.9 cm medial left upper lobe nodule axial image [address] most recent [address]. No new greater than 5 mm pulmonary nodules or masses. No pleural effusion or pneu mothorax seen bilaterally. MEDIASTINUM: There are no new greater than 1 cm hilar or mediastinal lymph nodes. No cardiomegaly o r pericardial effusion is seen. OTHER: Stable right internal jugular Mediport catheter terminating prior to the brachiocephalic confl uence. LIVER/GB: Right-sided partial hepatectomy changes redemonstrated. Fairly stable heterogeneous lesion posterior aspect left hepatic lobe measuring approximately 6.9 cm long axis axial image 51 series 3 i s not significantly changed in size or appearance from most recent CT. Area corresponds to the vague lesion with surrounding hypermetabolic uptake on the most recent PET/CT. No new lesions clearly ident ified. Cholecystectomy clips are redemonstrated. PANCREAS: No significant abnormality is seen. SPLEEN: Persistent splenomegaly measuring 15.7 cm long axis image 57. ADRENALS: No significant abnormality is seen. KIDNEYS: No significant abnormality is seen. BOWEL: Oral contrast reaches level of the rectum. Stomach not greatly distended particularly in the f undus on current study making evaluation suboptimal. No suspicious small or large bowel dilatation. S urgical changes from proximal partial colectomy and bowel anastomosis redemonstrated. Suspicious shor t segment 2 to 3 cm [id number] wall thickening in the left sigmoid rectal colon coronal image 74 near site of sutures just superior to this is noted. Persistent ventral wall hernia containing no ndilated bowel loops. GENITAL ORGANS: Prostate gland stable and upper limits of normal in size. LYMPH NODES: Stable 2.8 x 1.8 cm upper abdominal peritoneal mass or adenopathy axial image 57. No new greater than 1 cm abdominal or pelvic lymph nodes OSSEOUS STRUCTURES: Slight scoliotic curvature with multilevel spurring in the spine asymmetric moder ate to severe narrowing and spurring in the left hip joint. The right hip joint is redemonstrated. OTHER: Moderate to large size bilateral inguinal hernias redemonstrated. IMPRESSION: Left upper lung metastatic nodule and suspected left hepatic metastatic lesion along with upper abdominal peritoneal lesion all not significantly changed from most recent CT felt stable. Onl y area of concern on current study is moderate to severe short segment wall thickening in the sigmoid rectal colon left pelvis just distal or inferior to site of sutures. Consider direct visualization e valuation if has not been performed recently.
== END | disposition home or self-care (01) ==
LOC: RADCTMAIN 11:02
PROVIDERS: ATTEND Internal Medicine Hematology & Oncology
DX: K63.89 Other specified diseases of intestine (principal); C78.02 Secondary malignant neoplasm of left lung; C18.7 Malignant neoplasm of sigmoid colon; Z88.8 Allergy status to other drugs, medicaments and biological substances
CPT/HCPCS: 82565; 84520; 71260; 74177; 36415; Q9967

== ENCOUNTER 2020-12-03 07:43 | Day surgery (SDC) | payer OTHER ==
[2020-12-01 14:30] VITALS: BMI 26.3
[~2020-12-03 07:43] MED LIST changes: +ACETAMINOPHEN TAB 500 MG TAB PO PRN; +DEXAMETHASONE SOD PHOSPHATE 4 MG/ML 1 ML VIAL IV ONE; +HEPARIN SODIUM,PORCINE/PF 5,000 UNIT/0.5 ML SYRINGE SQ PRN; -LACTATED RINGERS 1,000 ML IV ONE; -LIDOCAINE 1% 20 ML VIAL (10MG/ML) FOR IV START INTRADERMA ONE; -LIDOCAINE 1% INJ 10MG/ML (20 ML MDV) ONE; +MIDAZOLAM 2 MG/2 ML VIAL IV PRN; +ONDANSETRON 4 MG/2 ML VIAL IVP ONE; -PROPOFOL 10 MG/ML 20 ML VIAL IV ONE; +SCOPOLAMINE 1.5MG/72HR PATCH TRANSDERM ONE
[2020-12-03 08:13] VITALS: RESP 16
--- NOTE | 2020-12-03 09:12 | P.GSHP ---
History of Present Illness H&P Date: 12/03/20 Chief Complaint: Metastatic colon cancer 55-year-old male here today for Port-A-Cath removal and replacement. Patient's catheter stopped functioning 2-3 months ago. Still undergoing intermittent chemotherapy sessions for his metastatic disease. Otherwise feeling well. De nies pain. Was happy with the location and function of the catheter up until it stopped working. Past Medical History Past Medical History: Cancer, GERD/Reflux, Osteoarthritis (OA) Additional Past Medical History / Comment(s): COLON, SMALL BOWEL & LIVER CANCER (02/2015), currently getting chemo, last radiation approx 1 yr ago History of Any Multi-Drug Resistant Organisms: None Reported Past Surgical History: Bowel Resection, Cholecystectomy Additional Past Surgical History / Comment(s): COLONOSCOPY 03/05/15 WITH BOWEL PERFORATION AND HAD RIGHT COLECTOMY WITH COLOSTOMY/REVERSAL Past Anesthesia/Blood Transfusion Reactions: No Reported Reaction Additional Past Anesthesia/Blood Transfusion Reaction / Comment(s): CLAUSTROPHOBIC Smoking Status: Former smoker - Past Family History Father Family Medical History: Cancer Additional Family Medical History / Comment(s): "cancer marker in his blood" Mother Additional Family Medical History / Comment(s): DIVERTICULITIS Medications and Allergies Home Medications Medication Instructions Recorded Confirmed Type Cholestyramine (with Sugar) 4 gm PO DAILY PRN 12/01/20 12/01/20 History [Cholestyramine Packet] HYDROmorphone [Dilaudid] 2 mg PO Q6H PRN 12/03/20 12/03/20 History Ondansetron Odt [Zofran ODT] 1 tab PO Q4HR PRN 12/03/20 12/03/20 History Allergies Allergy/AdvReac Type Severity Reaction Status Date / Time levothyroxine sodium AdvReac Severe Irregular Verified 12/03/20 07:59 Heart beat, Nerve pain. Surgical - Exam Vital Signs Temp Pulse Resp BP Pulse Ox 97.8 F 66 16 137/89 100 12/03/20 08:12 12/03/20 08:12 12/03/20 08:12 12/03/20 08:12 12/03/20 08:12 Physical exam: General: Well-developed, well-nourished HEENT: Normocephalic, sclerae nonicteric Abdomen: Nontender, nondistended Extremities: No edema Neuro: Alert and oriented Chest: Right infraclavicular Port-A-Cath in place Assessment and Plan (1) Colon adenocarcinoma Narrative/Plan: Will proceed with Port-A-Cath removal and replacement at this time. Patient I agreed to replace with a 6-Pashto catheter in the same spot likely using the same pocket. Risks of bleeding, infection, DVT, pneumothorax, catheter malfunction, anesthesia related complications were discussed. The patient understands and wishes to proceed. Current Visit: No Status: Acute Priority: High Code(s): C18.9 - MALIGNANT NEOPLASM OF COLON, UNSPECIFIED SNOMED Code(s): 146632538
[2020-12-03] MEDS ORDERED: ePHEDrine SULFATE/0.9% NACL/PF 50 MG/5 ML SYRINGE IV ONE (09:19)
[2020-12-03] MEDS ORDERED: PROPOFOL 10 MG/ML 20 ML VIAL IV ONE (09:19)
[2020-12-03] MEDS ORDERED: MIDAZOLAM 2 MG/2 ML VIAL ONE (09:19)
[2020-12-03] MEDS ORDERED: fentaNYL (PF) 50 MCG/ML 2 ML AMP ONE (09:19)
[2020-12-03] MEDS ORDERED: LIDOCAINE 1% INJ 10MG/ML (20 ML MDV) ONE (09:19)
[2020-12-03] MEDS ORDERED: LIDOCAINE 1% INJ 10MG/ML (20 ML MDV) SQ ONE (09:34)
[2020-12-03] MEDS ORDERED: traMADol 50 MG TAB PO PRN (10:11)
[2020-12-03] MEDS ORDERED: NALOXONE 0.4 MG/ML 1 ML VIAL IV PRN (10:11)
--- NOTE | 2020-12-03 10:14 | P.OP ---
Date of Procedure: 12/03/20 Procedure(s) Performed: PREOPERATIVE DIAGNOSIS: Metastatic colon cancer POSTOPERATIVE DIAGNOSIS: Same PROCEDURE: Port-A-Cath removal and replacement SURGEON: Daniel EBL: Minimal ANESTHESIA: Sedation COMPLICATIONS: None OPERATIVE PROCEDURE: Patient was placed in the supine position. The patient was sedated per anesthesia that time. The chest was prepped and draped in the usual sterile fashion. The skin was localized with Marcaine solution. The previous incision was re-excised using a scalpel. The port was easily excised using accommodation of blunt dissection sharp dissection and electrocautery. The catheter itself was fairly adherent at the insertion point. A counterincision was made at the previous right neck incision site. With blunt dissection I was able to remove the catheter fully intact without difficulty. Through that same opening the Seldinger needle was used to gain access to the jugular vein using ultrasound. The wire was advanced through the needle under fluoroscopic guidance into the superior vena cava. The catheter was tunneled from the wire entrance site to the port pocket. The port was then connected to the catheter. The dilator introducer was threaded over the guidewire. The guidewire and dilator were then removed. The catheter was advanced through the introducer and introducer was then removed. The tip was seen to be in the right atrial junction via fluoroscopy. A picture of the radiograph showing the tip at the radial digital junction was taken. Port was flushed with both saline and a Hep- Lock solution. There was good flow both in and out of the port. The port was sutured in underlying tissues using 3-0 silk sutures. The subcutaneous tissues were reapproximated using 3-0 Vicryl sutures and the skin at both locations using 4-0 Monocryl sutures. Skin glue and sterile dressings then applied. DISPOSITION: Stable to recovery room
[2020-12-03 10:20] VITALS: TEMP 97
[2020-12-03] MEDS ORDERED: HYDROmorphone 1 MG/ML 1 ML SYRINGE ONE (10:55)
[2020-12-03] MEDS: HYDROmorphone 0.5 MG/0.5 ML SYRINGE IVP PRN ×2 (10:56→11:06)
--- NOTE | 2020-12-03 10:58 | XR ---
EXAMINATION TYPE: XR chest 1V confirm line [facility] DATE OF EXAM: 12/03/2020 COMPARISON: 03/31/2015 INDICATION: Line placement TECHNIQUE: Single frontal view of the chest is obtained. FINDINGS: The heart size is normal. The pulmonary vasculature is normal. Very subtle infiltrate may be at the cardiac apex. Correlate for some mild subsegmental atelectasis. No pneumothorax is evident. Right central venous catheter is in place with the tip in the superior ve na cava right atrial junction. No pneumothorax is evident. IMPRESSION: 1. No pneumothorax post line placement. Tip is in the superior vena cava right atrial junction. 2. Minimal subsegmental atelectasis may be present at the cardiac apex.
[2020-12-03 11:42] VITALS: BP 118/78; PULSE 97
--- NOTE | 2020-12-03 11:46 | FL ---
Fluoroscopy INDICATION: Pain FINDINGS: Fluoroscopy time: 5 seconds. Images obtained: 1. IMPRESSIONS: 1. Documentation of fluoroscopy.
== END 2020-12-03 12:02 ==
LOC: OR 07:43
PROVIDERS: ATTEND Surgery
DX: Z45.2 Encounter for adjustment and management of vascular access device (principal); C18.9 Malignant neoplasm of colon, unspecified; C78.7 Secondary malignant neoplasm of liver and intrahepatic bile duct; C78.4 Secondary malignant neoplasm of small intestine; Z92.3 Personal history of irradiation; Z92.21 Personal history of antineoplastic chemotherapy; Z87.891 Personal history of nicotine dependence; M19.90 Unspecified osteoarthritis, unspecified site; K21.9 Gastro-esophageal reflux disease without esophagitis; Z79.899 Other long term (current) drug therapy; Z88.8 Allergy status to other drugs, medicaments and biological substances
CPT/HCPCS: 77001; 36582; C1788; J2250; J1100; J0690; J2405; J2001; J3010; J1170; J1642; J2704; J1644

== ENCOUNTER → 2020-12-06 | Outpatient (CLI) | payer OTHER ==
[2020-12-06 12:54] LABS: African American GFR (CKD) >90 (>60 ml/min/1.73 sqM); Blood Urea Nitrogen 12 mg/dL (9-20); Non-African American GFR(CKD) >90 (>60 ml/min/1.73 sqM)
--- NOTE | 2020-12-06 14:52 | CT ---
EXAMINATION TYPE: CT ChestAbdPelvis w con DATE OF EXAM: 12/06/2020 COMPARISON: 09/06/2020 HISTORY: Colon cancer CT DLP: 1124.3 mGycm CONTRAST: CT scan of the chest, abdomen and pelvis is performed with Oral Contrast and with IV Contrast, patien t injected with 100 mL of Isovue 300. CT Chest: LUNGS: Again noted is a left upper lobe pulmonary nodule currently measures 2.6 x 2.1 cm versus 2.3 x 1.9 cm previously. No additional nodules are seen. MEDIASTINUM: Thoracic aorta is of normal caliber. The heart is not enlarged. No evidence for media stinal mass or adenopathy. HILAR STRUCTURES: No evidence for mass. No hilar adenopathy is appreciated. OTHER: No significant abnormality. CONTRAST CT ABDOMEN AND PELVIS FINDINGS: LIVER/GB: Partial right hip activity change. Vague nearly isodense lesion left hepatic lobe is small er in size and measures 5.3 cm in greatest dimension versus 6.9 cm previously. No additional lesions present. The gallbladder is surgically absent. PANCREAS: No inflammation. No distinct mass. SPLEEN: Splenomegaly measuring 16.6 cm craniocaudal dimension. ADRENALS: No nodule. No thickening. KIDNEYS/BLADDER: No hydronephrosis. No nephrolithiasis. No distinct renal mass. BOWEL: Normal appendix. Normal bowel caliber. No inflammation. Partial colectomy and anastomosis ar e noted. No evidence for recurrent or residual mass. No evidence for obstruction. ORGANS: No gross abnormality. LYMPH NODES: No greater than 1cm abdominal or pelvic lymph nodes are appreciated. AORTA: No significant abnormality. OSSEOUS STRUCTURES: No significant abnormality is seen. OTHER: Persistent ventral hernia containing loops of small bowel measuring 7.0 x 2.4 cm. Left-sided h ydrocele. IMPRESSION: 1. Left upper lobe pulmonary nodule is slightly larger in size. 2. Partial colectomy anastomotic changes noted without evidence for recurrent or residual mass. 3. Persistent splenomegaly. 4. partial hepatectomy changes. Persistent lesion left hepatic lobe.
== END | disposition home or self-care (01) ==
LOC: RADCTMAIN 12:09
PROVIDERS: ATTEND Internal Medicine Hematology & Oncology
DX: C18.9 Malignant neoplasm of colon, unspecified (principal); R91.1 Solitary pulmonary nodule
CPT/HCPCS: 82565; 84520; 71260; 74177; 36415; Q9967

== ENCOUNTER → 2021-02-07 | Outpatient (CLI) | payer OTHER ==
[2021-02-07 14:52] LABS: African American GFR (CKD) >90 (>60 ml/min/1.73 sqM); Blood Urea Nitrogen 13 mg/dL (9-20); Non-African American GFR(CKD) >90 (>60 ml/min/1.73 sqM)
--- NOTE | 2021-02-07 16:30 | CT ---
EXAMINATION TYPE: CT ChestAbdPelvis w con DATE OF EXAM: 02/07/2021 COMPARISON: Most recent CT December 06, 2020 and older studies. HISTORY: Colon cancer who originally diagnosed 2016 with hepatic metastatic recurrence February 2019. CT DLP: 1677 mGycm. Automated Exposure Control for Dose Reduction was Utilized. CONTRAST: CT scan of the thorax, abdomen and pelvis is performed with oral and with IV Contrast, patient inject ed with 100 mL of Isovue M300. FINDINGS: LUNGS: Medial left upper lung nodule measures 2.8 x 2.3 cm current study axial image 19 versus 2.6 x 1.9 cm most recent prior. Central hypodensity or necrosis with peripheral hyperdensity or enhancement . No new greater than 5 mm pulmonary nodules or masses. No pleural effusion or pneumothorax seen bila terally. MEDIASTINUM: There are no new greater than 1 cm hilar or mediastinal lymph nodes. No cardiomegaly o r pericardial effusion is seen. OTHER: Stable right internal jugular Mediport catheter terminating prior to the brachiocephalic confl uence. LIVER/GB: Right-sided partial hepatectomy changes redemonstrated. Fairly stable heterogeneous lesion posterior aspect left hepatic lobe measuring approximately 5.1 cm long axis axial image 51 series 3 is not significantly changed in size when accounting for technical differences from most recent CT. No new lesions clearly identified. Cholecystectomy clips are redemonstrated. PANCREAS: No significant abnormality is seen. SPLEEN: Persistent splenomegaly measuring 15.7 cm long axis image 57. ADRENALS: No significant abnormality is seen. KIDNEYS: No significant abnormality is seen. BOWEL: Oral contrast reaches level of the rectum. Stomach not greatly distended on current study janki ing evaluation suboptimal as oral contrast has passed. No suspicious small or large bowel dilatation. Surgical changes from proximal partial colectomy and bowel anastomosis redemonstrated. Suspicious sh ort segment moderate wall thickening in the sigmoid rectal colon proximal to surgical sutures extendi ng distally axial images 106 through 114. Persistent [place] ventral wall hernia containing nondila emily bowel loops near umbilicus along vertical incision. GENITAL ORGANS: Prostate gland stable and upper limits of normal in size. LYMPH NODES: Stable 2.7 x 1.8 cm upper abdominal peritoneal mass or adenopathy axial image 57 just le ft of midline just anterior to superior aspect of left adrenal gland. No new greater than 1 cm abdomi nal or pelvic lymph nodes OSSEOUS STRUCTURES: Slight scoliotic curvature with multilevel spurring in the spine. Asymmetric mode rate to severe narrowing and spurring in the left hip joint is redemonstrated. OTHER: Moderate to large size bilateral inguinal hernias redemonstrated with small amount of fluid in left inguinal hernia again seen. IMPRESSION: Slight enlarging left upper lung metastatic nodule. Stable hepatic metastatic lesion and upper abdominal peritoneal mass or lymph node. Persistent suspicious area of sigmoid rectal colon. No obvious new mass or adenopathy.
== END | disposition home or self-care (01) ==
LOC: RADPROMAIN 13:54
PROVIDERS: ATTEND Internal Medicine Hematology & Oncology
DX: C78.7 Secondary malignant neoplasm of liver and intrahepatic bile duct (principal); C78.02 Secondary malignant neoplasm of left lung; Z85.038 Personal history of other malignant neoplasm of large intestine
CPT/HCPCS: 82565; 84520; 71260; 74177; J1642; Q9967 ×2

== ENCOUNTER → 2021-04-25 | Outpatient (CLI) | payer OTHER ==
[2021-04-25 15:22] LABS: African American GFR (CKD) >90 (>60 ml/min/1.73 sqM); Blood Urea Nitrogen 11 mg/dL (9-20); Non-African American GFR(CKD) >90 (>60 ml/min/1.73 sqM)
--- NOTE | 2021-04-27 08:48 | CT ---
EXAMINATION TYPE: CT ChestAbdPelvis w con DATE OF EXAM: 04/25/2021 COMPARISON: 02/07/2021, 12/06/2020, 09/06/2020 HISTORY: 56-year-old male Follow up for colon cancer, observe for mets. TECHNIQUE: Contiguous axial scanning of the chest, abdomen, and pelvis performed with IV Contrast, pa tient injected with 100ml mL of Isovue 300. Delayed images through the kidneys were obtained. Coronal /sagittal reconstructions performed. CT DLP: 1136.5 mGycm Automated exposure control for dose reduction was used. FINDINGS: CHEST: Right anterior chest wall injection port with catheter tip at the cavoatrial junction. Heart normal size without pericardial effusion. Aorta normal caliber with conventional arch vessel branching anatomy. No thoracic lymphadenopathy by CT size criteria. Redemonstrated medial left upper lobe mass measuring 3.4 x 2.9 cm versus 2.9 x 2.5 cm, previously. No consolidation or pleural effusion. ABDOMEN: Redemonstrated rectus diastases and a couple ventral abdominal wall hernias containing nonobstructed small bowel loops. There is evidence of right hepatectomy. Heterogeneous hypoechoic area segment 2 posterior left liver lobe measures 5.5 x 2.9 cm versus 4.8 x 3.1 cm on 02/07/2021 and 5.1 x 3.7 cm on 12/06/2020. Portal venous system is patent. No biliary ductal dilatation. Adrenal glands, kidneys, and pancreas within normal limits. Splenomegaly redemonstrated at 17.6 cm. Enlarged gastrohepatic ligament lymph node measuring 2.9 x 1.9 cm, relatively unchanged. Some borderline distended small bowel loops measuring up to 3.0 cm. No transition point. PELVIS: Bladder partially distended. Prostate gland measures 4.1 cm wide. Findings probably transient. High r iding cecum. Oral contrast progressed to the rectum. Postsurgical changes with prior resection and re anastomosis of the distal rectum. There is eccentric mural based thickening along the left lateral aspect of the mid to lower rectum wi th suggestion of some associated low density measuring 2.1 cm, reference axial image 120 and coronal image 68. Findings new from prior exam. There is perirectal fat stranding which is increased from prior probably posttreatment change. Some a dditional strandy edema/trace fluid noted in the pelvis. No pelvic lymphadenopathy seen. Patulous bilateral inguinal canals with fat containing indirect left inguinal hernia. BONES: Moderate degenerative change of the left hip. Moderate degenerative disc disease throughout the lumba r spine. Grade 1 retrolisthesis L1-L2 and L2-L3. IMPRESSION: 1. NEW ECCENTRIC MURAL THICKENING ALONG THE LEFT LATERAL WALL OF THE RECTUM WITH SOME ASSOCIATED LOW DENSITY MEASURING 2.1 CM. CONSIDER A NEW DEVELOPING MURAL BASED NEOPLASM VERSUS INTRAMURAL ABSCESS. 2. INCREASED PERIRECTAL FAT STRANDING AND SOME MILD STRANDY EDEMA, QUERY INTERVAL POSTTREATMENT MONTENEGRO E. 3. PREVIOUS RIGHT HEPATECTOMY. PREVIOUS RESECTION AND REANASTOMOSIS AT THE DISTAL SIGMOID. 4. LEFT UPPER LOBE METASTASIS SLIGHTLY LARGER AT 3.4 CM VERSUS 2.9 CM, PREVIOUSLY. LEFT LIVER LOBE LE PEACE STABLE TO SLIGHTLY LARGER AT 5.5 CM VERSUS 4.8 CM, PREVIOUSLY. GASTROHEPATIC LIGAMENT LYMPHADENO DELGADO STABLE AT 2.9 CM. 5. STABLE SPLENOMEGALY.
== END | disposition home or self-care (01) ==
LOC: RADPROMAIN 13:51
PROVIDERS: ATTEND Internal Medicine Hematology & Oncology
DX: C78.7 Secondary malignant neoplasm of liver and intrahepatic bile duct (principal); C18.7 Malignant neoplasm of sigmoid colon; R59.0 Localized enlarged lymph nodes
CPT/HCPCS: 82565; 84520; 71260; 74177; 36415; J1642; Q9967

== ENCOUNTER 2021-05-17 10:25 | Day surgery (SDC) | payer OTHER ==
[2021-05-12 11:09] VITALS: BMI 25.7
[2021-05-17] MEDS ORDERED: LACTATED RINGERS 1,000 ML IV SCH (10:34)
[2021-05-17 10:47] VITALS: TEMP 97.8
[2021-05-17] MEDS ORDERED: LIDOCAINE 1% (10MG/ML) FOR IV START INTRADERMA ONE (10:52)
[2021-05-17] MEDS ORDERED: PROPOFOL 10 MG/ML 20 ML VIAL IV ONE (11:04)
[2021-05-17] MEDS ORDERED: LIDOCAINE 1% INJ 10MG/ML (20 ML MDV) ONE (11:04)
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
--- NOTE | 2021-05-17 11:23 | P.PCN ---
Date of Procedure: 05/17/21 Procedure(s) Performed: PREOPERATIVE DIAGNOSIS: Colon cancer POSTOPERATIVE DIAGNOSIS: Normal exam PROCEDURE: Colonoscopy ANESTHESIA: MAC SURGEON: Raúl Sanchez M.D. SPECIMENS: None ENDOSCOPIC PROCEDURE: The patient was placed on the endoscopy table in the left decubitus position. The Olympus colonoscope was inserted into the anus and passed under direct visualization to the ileocolonic anastomosis. The anastomosis was widely patent. There was some bile staining throughout the mucosa visualized however no neoplastic inflammatory or polypoid lesions were seen throughout the transverse descending or rectum. The patient's previous colorectal anastomosis was widely patent. The anastomosis appeared to be a end to side anastomosis. This may explain some of the thickening in the rectum seen on recent CAT scan. No visible diverticulosis was seen. Digital rectal examination was normal. The patient was taken to the recovery room in stable condition per anesthesia guidelines. RECOMMENDATIONS: Resume diet. Follow colonoscopy 3 years.
[2021-05-17 11:38] VITALS: RESP 18
[2021-05-17 11:42] VITALS: BP 129/76; PULSE 87
== END 2021-05-17 12:13 | disposition home or self-care (01) ==
LOC: ORWHC2ENDO 10:25
PROVIDERS: ATTEND Surgery
DX: C18.7 Malignant neoplasm of sigmoid colon (principal); Z90.49 Acquired absence of other specified parts of digestive tract; K21.9 Gastro-esophageal reflux disease without esophagitis; M19.90 Unspecified osteoarthritis, unspecified site; Z85.05 Personal history of malignant neoplasm of liver; Z92.3 Personal history of irradiation; Z92.21 Personal history of antineoplastic chemotherapy; Z95.828 Presence of other vascular implants and grafts; F40.240 Claustrophobia; Z87.891 Personal history of nicotine dependence; Z80.8 Family history of malignant neoplasm of other organs or systems; Z83.79 Family history of other diseases of the digestive system; Z88.8 Allergy status to other drugs, medicaments and biological substances
CPT/HCPCS: 45378; J2001; J2704

== ENCOUNTER 2021-05-25 09:34 | Emergency (ER) | payer OTHER ==
[2021-05-25 09:46] VITALS: TEMP 98.2
[2021-05-25] MEDS ORDERED: SODIUM CHLORIDE 0.9% 1,000 ML IV STA (10:04)
[2021-05-25] MEDS ORDERED: ONDANSETRON 4 MG/2 ML VIAL IVP STA (10:04)
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
[2021-05-25 10:59] LABS: ALT 24 U/L (4-49); AST 36 U/L (17-59); African American GFR (CKD) >90 (>60 ml/min/1.73 sqM); Albumin 4.1 g/dL (3.5-5.0); Alkaline Phosphatase 126 U/L (38-126); Anion Gap 11 mmol/L; Blood Urea Nitrogen 21 mg/dL (9-20); Calcium 8.8 mg/dL (8.4-10.2); Carbon Dioxide 22 mmol/L (22-30); Chloride 103 mmol/L (98-107); Glucose 95 mg/dL (74-99); Magnesium 2.1 mg/dL (1.6-2.3); Non-African American GFR(CKD) >90 (>60 ml/min/1.73 sqM); Potassium 3.4 mmol/L (3.5-5.1); Sodium 136 mmol/L (137-145); Total Bilirubin 4.1 mg/dL (0.2-1.3); Total Protein 7.9 g/dL (6.3-8.2)
--- NOTE | 2021-05-25 11:12 | XR ---
EXAMINATION TYPE: XR chest 2V DATE OF EXAM: 05/25/2021 COMPARISON: 12/03/2020 TECHNIQUE: PA and lateral views submitted. HISTORY: Pain post fall FINDINGS: Large left upper lobe lung mass measuring 3.5 cm. Mediport catheter seen. Lungs are clear. Heart size normal. No pleural effusion or pneumothorax. Hypertrophic and degenerative changes of the spine. No overt failure. IMPRESSION: 1. Large left upper lobe lung mass.
[2021-05-25 11:39] LABS: Anisocytosis Slight; HCT 40.9 % (39.0-53.0); HGB 14.3 gm/dL (13.0-17.5); MCH 36.5 pg (25.0-35.0); MCHC 34.9 g/dL (31.0-37.0); MCV 104.6 fL (80.0-100.0); Macrocytosis Moderate; Mean Platelet Volume 7.8; Poikilocytosis Slight; RBC 3.91 m/uL (4.30-5.90); RDW 16.2 % (11.5-15.5); WBC 1.8 k/uL (3.8-10.6)
--- NOTE | 2021-05-25 11:44 | CT ---
EXAMINATION TYPE: CT brain cspine wo con DATE OF EXAM: 05/25/2021 COMPARISON: None HISTORY: Pain CT DLP: 1451.8 mGycm Automated exposure control for dose reduction was used. TECHNIQUE: CT scan of the head and cervical spine are performed without contrast. FINDINGS: There is large area of abnormal attenuation involving the left cerebellar hemisphere exte nding across the midline and compressing the fourth ventricle resulting in mitral hydrocephalus. Also appears to be herniation of the cerebellar tonsils below the level of foramen magnum. Slightly hyper dense component within the suspected large mass could represent a solid component although a hemorrha gic component to the lesion is in the differential diagnosis. Overall lesion measures at least 4.8 cm . There is a degree of mass effect upon the posterior margin of the brainstem. Calvarium intact. Report called to the ER physician 11:35 AM 05/25/2021. Multilevel hypertrophic and degenerative change with no definite destructive changes. Multilevel mild facet arthropathy. No acute fracture. Assessment spinal canal limited. If concern for disc herniatio n correlate with MRI There is a large left upper lobe lung mass measuring 3 cm. IMPRESSION: 1. There is a large complex posterior fossa mass involving the cerebellum with compression of the fou rth ventricle. There is mild hydrocephalus and mild mass effect upon the posterior margin of the brai nstem. Lesion appears to be of mixed solid and cystic component. Small hemorrhagic component of the l esion not excluded. Overall lesion measures approximately 4.8 cm. There does appear to be displacemen t or herniation of the inferior margin of the cerebellar tonsils below the level of the foramen magnu m. Correlate clinically. 2. Intrapulmonary mass. Given the patient's history of prior malignancies intracranial lesion likely represents a large metastases.
[2021-05-25] MEDS ORDERED: DEXAMETHASONE SOD PHOSPHATE 10 MG/ML 1 ML VIAL IVP STA (12:15)
[2021-05-25] MEDS ORDERED: levETIRAcetam IV 1,000 MG in SALINE 1 100ML.BAG IVPB STA (12:15)
[2021-05-25 12:27] LABS: INR 1.2 (<1.2)
[2021-05-25 12:54] LABS: Basophils # (M) 0.02 k/uL (0-0.2); Eosinophils # (M) 0.02 k/uL (0-0.7); Lymphocytes # (M) 1.15 k/uL (1.0-4.8); Monocytes # (M) 0.43 k/uL (0-1.0); Myelocytes # (M) 0.02 k/uL (0); Myelocytes % 1 %; Neutrophils % (M) 9 %; Nucleated Red Blood Cells 0 /100 WBC (0-0); Total Cells Counted 100
[2021-05-25 12:56] LABS: Platelet Count 70 k/uL (150-450)
[2021-05-25 12:58] VITALS: BP 150/99
[2021-05-25 13:07] LABS: Neutrophils # (M) 0.16 k/uL (1.3-7.7)
[2021-05-25 14:04] VITALS: PULSE 95; RESP 18
== END 2021-05-25 14:01 | disposition other institution (70) ==
LOC: EC 09:34
DX: E86.0 Dehydration (principal); C79.31 Secondary malignant neoplasm of brain; C80.1 Malignant (primary) neoplasm, unspecified; G91.9 Hydrocephalus, unspecified; D72.819 Decreased white blood cell count, unspecified; K21.9 Gastro-esophageal reflux disease without esophagitis; M19.90 Unspecified osteoarthritis, unspecified site; Z88.1 Allergy status to other antibiotic agents; Z90.49 Acquired absence of other specified parts of digestive tract; Z87.891 Personal history of nicotine dependence
CPT/HCPCS: 99285; 96374; 96375 ×2; 96361; 36415; 93005; 80053; 83605; 83735; 84484; 85025; 85610; 85730; 87635; 71046; 72125; 70450; J1100; J2405; J1953

== ENCOUNTER → 2021-08-12 | Outpatient (CLI) | payer MEDICARE, OTHER ==
[2021-08-12 14:41] LABS: African American GFR (CKD) >90 (>60 ml/min/1.73 sqM); Blood Urea Nitrogen 8 mg/dL (9-20); Non-African American GFR(CKD) >90 (>60 ml/min/1.73 sqM)
--- NOTE | 2021-08-13 19:42 | CT ---
EXAMINATION TYPE: CT ChestAbdPelvis w con DATE OF EXAM: 08/12/2021 COMPARISON: 04/25/2021, 02/07/2021, 12/06/2020 HISTORY: 56-year-old male C18.7 Colon Ca Z03.89 Observation suspected mets TECHNIQUE: Contiguous axial scanning of the chest, abdomen, and pelvis performed with IV Contrast, pa tient injected with 100 mL of Isovue 370. Delayed images through the kidneys were obtained. Coronal/s agittal reconstructions performed. CT DLP: 1128.8 mGycm Automated exposure control for dose reduction was used. FINDINGS: CHEST: Right anterior chest wall injection port with catheter tip at the cavoatrial junction. Heart normal size without pericardial effusion. Aorta normal caliber with conventional arch vessel branching anatomy. Stable 9 mm AP window lymph node. No thoracic lymphadenopathy by CT size criteria. Medial left upper lobe mass measures 4.7 x 4.0 cm versus 3.4 x 2.9 cm, previously. It shows extension into the right upper lobe bronchus. New 5 mm satellite nodule lateral left upper lobe, axial image 2 6. No dillon consolidation or pleural effusion. ABDOMEN: Status post right hepatectomy. Irregular area of hypodensity segment to the left liver lobe with irre gular peripheral enhancement currently measuring 5.6 x 5.4 cm versus 5.5 x 3.8 cm, previously. Portal venous system is patent. No biliary ductal dilatation. Gallbladder appears absent. New 1 cm nodule of the right adrenal gland. Left adrenal gland, kidneys, and pancreas show no gross abnormality. Redemonstrated is splenomegaly up to 17.6 cm. Mottled enhancement of arterial phase imaging. 1.2 cm retroperitoneal, left periaortic lymph node is medial. Gastrohepatic ligament mehreen mass measuring 3.6 x 2.5 cm previously measured 3.0 x 1.9 cm. Supraumbilical ventral abdominal wall hernias extending to the subcarinal region containing nonobstru cted small bowel loops redemonstrated. Hernia sacs measure up to 10.6 cm wide. There appears to be right hemicolectomy with ileocolonic anastomosis along the mid transverse colon. Oral contrast progressed to the rectum. There is stable alignment related to prior resection and rean astomosis of the distal sigmoid. Proximal sigmoid diverticulosis. No pericolic inflammatory change. Some nonspecific fat stranding/edema of the intra-abdominal fat redemonstrated. PELVIS: Mild circumferential bladder wall thickening. Mild ascites fluid extending through the patient's mode rate sized left inguinal hernia primarily containing fat. This is an indirect inguinal hernia. Right inguinal canal also patulous. Moderate circumferential bladder wall thickening. Prostate gland measur es approximately 4.4 cm wide. No pelvic lymphadenopathy seen. BONES: Moderate degenerative change left hip and mild at the right hip. Mild degenerative change right SI netta int. Moderate degenerative disc disease throughout the lumbar spine. Facet arthropathy lumbar spine. Grade 1 retrolisthesis L1-L4 levels. Some mild anterior projecting endplate spondylosis lower thoraci c spine. No osseous destructive process seen. IMPRESSION: 1. STATUS POST RIGHT HEMICOLECTOMY , RIGHT HEPATECTOMY, AND DISTAL SIGMOID RESECTION WITH REANASTOMOS IS. 2. OVERALL FINDINGS SUGGESTING DISEASE PROGRESSION FOLLOWS: 3. ENLARGING MEDIAL LEFT UPPER LOBE MASS (4.7 CM VERSUS 3.4 CM, PREVIOUSLY), NEW 5 MM LEFT UPPER LOBE SATELLITE NODULE, NEW 1 CM RIGHT ADRENAL GLAND NODULE, NEW 1.2 CM LEFT PERIAORTIC LYMPH NODE, AND EN LARGING GASTROHEPATIC LIGAMENT LYMPH MEHREEN MASS (3.6 CM VERSUS 3.0 CM, PREVIOUSLY). 4. AN IRREGULAR HYPODENSE AREA WITHIN SEGMENT 2 OF THE LEFT LIVER LOBE WITH PERIPHERAL ENHANCEMENT IS SLIGHTLY LARGER WELL AT 5.6 X 5.4 CM (VERSUS 5.5 X 3.8 CM, PREVIOUSLY). 5. REDEMONSTRATED SPLENOMEGALY (17.6 CM). PROXIMAL SIGMOID DIVERTICULOSIS. INDIRECT LEFT INGUINAL HER MAURICE. 6. REDEMONSTRATED SUPRAUMBILICAL VENTRAL ABDOMINAL WALL HERNIAS EXTENDING TO THE SUBSTERNAL REGION CO NTAINING NONOBSTRUCTED BOWEL LOOPS.
== END | disposition home or self-care (01) ==
LOC: RADPROMAIN 14:00
PROVIDERS: ATTEND Internal Medicine Hematology & Oncology
DX: C18.7 Malignant neoplasm of sigmoid colon (principal); K57.30 Diverticulosis of large intestine without perforation or abscess without bleeding; K40.90 Unilateral inguinal hernia, without obstruction or gangrene, not specified as recurrent; K43.9 Ventral hernia without obstruction or gangrene; E27.8 Other specified disorders of adrenal gland; Z90.49 Acquired absence of other specified parts of digestive tract; Z90.89 Acquired absence of other organs; Z98.0 Intestinal bypass and anastomosis status
CPT/HCPCS: 82565; 84520; 71260; 74177; J1642; Q9967 ×2

== ENCOUNTER 2021-11-23 11:17 | Emergency (ER) | payer MEDICARE, OTHER ==
[2021-11-23 11:22] VITALS: BP 149/103; PULSE 95; RESP 18; TEMP 97.9
[2021-11-23] MEDS ORDERED: ONDANSETRON 4 MG/2 ML VIAL IVP STA (11:40)
[2021-11-23] MEDS ORDERED: SODIUM CHLORIDE 0.9% 1,000 ML IV STA (11:40)
[2021-11-23] MEDS ORDERED: FAMOTIDINE 20 MG/2 ML VIAL IV STA (11:41)
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
--- NOTE | 2021-11-23 12:15 | XR ---
EXAMINATION TYPE: XR chest 2V DATE OF EXAM: 11/23/2021 COMPARISON: 05/25/2021 HISTORY: Shortness of breath TECHNIQUE: Frontal and lateral views of the chest are obtained. FINDINGS: Scattered senescent parenchymal changes noted. Hyperinflation compatible with COPD. No evidence for infiltrate. No evidence for atelectasis. Stable left suprahilar mass. [facility] er is in place. Heart size is stable. Mediastinal structures are stable and grossly unremarkable. No evidence for hilar prominence. Degenerative changes dorsal spine. IMPRESSION: 1. Stable left suprahilar mass.
[2021-11-23 12:45] LABS: Basophils # (A) 0.1 k/uL (0-0.2); Basophils % (A) 1 %; Eosinophils # (A) 0.1 k/uL (0-0.7); Eosinophils % (A) 2 %; HCT 43.6 % (39.0-53.0); HGB 14.3 gm/dL (13.0-17.5); Lymphocytes # (A) 1.1 k/uL (1.0-4.8); Lymphocytes % (A) 13 %; MCH 32.1 pg (25.0-35.0); MCHC 32.7 g/dL (31.0-37.0); MCV 98.1 fL (80.0-100.0); Mean Platelet Volume 8.1; Monocytes # (A) 0.4 k/uL (0-1.0); Monocytes % (A) 5 %; Neutrophils # (A) 6.9 k/uL (1.3-7.7); Neutrophils % (A) 80 %; RBC 4.45 m/uL (4.30-5.90); RDW 14.6 % (11.5-15.5); WBC 8.7 k/uL (3.8-10.6)
[2021-11-23 13:02] LABS: ALT 65 U/L (4-49); AST 74 U/L (17-59); African American GFR (CKD) >90 (>60 ml/min/1.73 sqM); Alkaline Phosphatase 374 U/L (38-126); Anion Gap 8 mmol/L; Blood Urea Nitrogen 11 mg/dL (9-20); Calcium 9.1 mg/dL (8.4-10.2); Carbon Dioxide 25 mmol/L (22-30); Chloride 104 mmol/L (98-107); Glucose 142 mg/dL (74-99); Magnesium 1.9 mg/dL (1.6-2.3); Non-African American GFR(CKD) >90 (>60 ml/min/1.73 sqM); Potassium 3.7 mmol/L (3.5-5.1); Sodium 137 mmol/L (137-145); Total Bilirubin 2.3 mg/dL (0.2-1.3); Total Protein 7.7 g/dL (6.3-8.2)
[2021-11-23 13:30] LABS: Platelet Count 87 k/uL (150-450)
[2021-11-23] MEDS ORDERED: traMADol 50 MG STARTER PACK 3 TAB BTL PO STA (13:51)
== END 2021-11-23 14:49 | disposition home or self-care (01) ==
LOC: EC 11:17
DX: E86.0 Dehydration (principal); R11.2 Nausea with vomiting, unspecified
CPT/HCPCS: 36415; 80053; 83735; 85025; 71046; 99285; 96374; 96375; 96361; J2405; J1642

== ENCOUNTER 2021-11-27 13:38 | Emergency (ER) | payer MEDICARE, OTHER ==
[2021-11-27 13:42] VITALS: TEMP 98.3
[2021-11-27] MEDS ORDERED: METOCLOPRAMIDE 5 MG/ML 2 ML VIAL IVP STA (14:48)
[2021-11-27] MEDS ORDERED: SODIUM CHLORIDE 0.9% 1,000 ML IV STA (14:49)
[2021-11-27] MEDS ORDERED: KETOROLAC 15 MG/ML 1 ML VIAL IVP STA (14:49)
[2021-11-27 15:15] LABS: Basophils % (A) 0 %; Eosinophils # (A) 0.1 k/uL (0-0.7); Eosinophils % (A) 2 %; HCT 44.2 % (39.0-53.0); HGB 15.4 gm/dL (13.0-17.5); Lymphocytes # (A) 0.8 k/uL (1.0-4.8); Lymphocytes % (A) 10 %; MCH 33.4 pg (25.0-35.0); MCHC 34.9 g/dL (31.0-37.0); MCV 95.8 fL (80.0-100.0); Mean Platelet Volume 7.9; Monocytes # (A) 0.4 k/uL (0-1.0); Monocytes % (A) 6 %; Neutrophils # (A) 6.6 k/uL (1.3-7.7); Neutrophils % (A) 82 %; RBC 4.61 m/uL (4.30-5.90); RDW 14.8 % (11.5-15.5)
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
[2021-11-27 15:23] LABS: ALT 85 U/L (4-49); AST 87 U/L (17-59); African American GFR (CKD) >90 (>60 ml/min/1.73 sqM); Albumin 4.3 g/dL (3.5-5.0); Alkaline Phosphatase 452 U/L (38-126); Anion Gap 8 mmol/L; Blood Urea Nitrogen 13 mg/dL (9-20); Calcium 9.5 mg/dL (8.4-10.2); Carbon Dioxide 27 mmol/L (22-30); Chloride 100 mmol/L (98-107); Glucose 127 mg/dL (74-99); Magnesium 1.8 mg/dL (1.6-2.3); Non-African American GFR(CKD) >90 (>60 ml/min/1.73 sqM); Sodium 135 mmol/L (137-145); Total Bilirubin 3.4 mg/dL (0.2-1.3)
[2021-11-27 15:28] LABS: Platelet Count 79 k/uL (150-450)
[2021-11-27 16:27] VITALS: RESP 18
--- NOTE | 2021-11-27 16:30 | CT ---
EXAMINATION TYPE: CT brain cspine wo con DATE OF EXAM: 11/27/2021 COMPARISON: 05/25/2021 HISTORY: headaches CT DLP: 1409.7 mGycm Automated exposure control for dose reduction was used. Images of the brain and cervical spine obtained with no contrast. There is 5 x 3.5 cm area of vides and white matter edema in the right posterior parietal lobe convexit y. This appears new compared to the old exam. There is no mass effect. There is a ring shaped low den sity mass in the right frontal lobe measuring 3 cm in diameter with surrounding white matter edema. A tracey of edema measures almost 6 cm. There is mass effect upon the frontal horn of the left lateral johnathan tricle. There is irregular hypodensity in the posterior fossa with occipital craniotomy defect. There is mixe d attenuation at the floor of the posterior cranial fossa measuring almost 7 cm in maximum dimension. The sella turcica is normal. The cervical vertebra have normal spacing and alignment. Posterior elements are intact. No compressio n fracture. No evidence of focal bone destruction. IMPRESSION: 3 cm mass in the left frontal lobe with surrounding edema consistent with tumor and appears new antionette red to the CT scan of 05/25/2021. There is edema in the right posterior parietal lobe consistent with tumor and appears new compared to old exam. There is postsurgical changes in the posterior fossa with irregular mass effect upon the fourth ventr icle that appears similar to last exam. Negative CT scan cervical spine. Minor degenerative changes in the cervical spine.
[2021-11-27 16:59] LABS: INR 1.1 (<1.2); Prothrombin Time 11.5 sec (9.0-12.0)
[2021-11-27 18:12] VITALS: BP 141/92; PULSE 86
== END 2021-11-27 18:05 | disposition home or self-care (01) ==
LOC: EC 13:38
DX: R51.9 Headache, unspecified (principal); Z79.83 Long term (current) use of bisphosphonates; K21.9 Gastro-esophageal reflux disease without esophagitis; Z87.891 Personal history of nicotine dependence; Z88.8 Allergy status to other drugs, medicaments and biological substances
CPT/HCPCS: 36415; 86900; 86901; 80053; 83735; 85025; 85610; 85730; 86850; 72125; 70450; 99284; 96374; 96361; 96375; J2765; J1885